=== PATIENT | female | born 1935 | race Caucasian/White ===

== ENCOUNTER 2016-08-21 01:05 | Emergency (ER) | payer OTHER ==
[~2016-08-21] VITALS: Ht 167.6 cm; Wt 82.6 kg
--- NOTE | 2016-08-21 01:12 | ED GI/GU/ABDOMINAL COMPLAINT ---
History of Present Illness General Chief Complaint: Nausea, Vomiting, Diarrhea Stated Complaint: BIBA FROM [facility],+N +D Source: patient, family Exam Limitations: no limitations Vital Signs & Intake/Output Vital Signs & Intake/Output Vital Signs Date Time Temp Pulse Resp B/P B/P Pulse O2 O2 Flow FiO2 Mean Ox Delivery Rate 08/21 0449 97.6 65 18 128/76 96 08/21 0200 61 18 130/76 97 08/21 0108 97.6 63 19 120/58 98 Room Air Allergies Coded Allergies: MDX - Latex (UNKNOWN 08/07/13) MDX - Rofecoxib (Rofecoxib) (UNKNOWN 08/07/13) Triage Nurses Notes Reviewed? yes ? N Is pt currently ? No Onset: Abrupt Duration: hour(s): (1) Timing: single episode today Quality/Severity: mild, moderate Location: generalized abdomen Activities at Onset: large BM Associated Symptoms: abdominal pain, nausea/vomiting HPI: 81 year old female presents via EMS from [facility] for chief complaint of syncopal episode after a large BM in the intermediate [facility]. SHe then vomited. Patient was found diaphoretic, hypotensive. She was given 250 mL bolus of fluid. No chest pain or shortness of breath. At this time patient arrives normotensive. Skin is warm and dry. She is awake alert and mentating. Denies any abdominal pain at this time. She states she had some lower abdominal cramping which got better after the bowel movement. Past History Medical History Any Pertinent Medical History? see below for history Musculoskeletal: spinal stenosis, CHRONIC PAIN Psychiatric: anxiety History of MRSA: No History of VRE: No History of CDIFF: No Pneumonia Vaccine: 02/22/10 Influenza Vaccine: 01/22/13 Surgical History Surgical History: non-contributory Psychosocial History Who do you live with Paid Attentent What is your primary language [place] Family History Family History, If Any: MOTHER FH: uterine cancer FATHER FH: alcoholism Hx Contributory? No Review of Systems Review of Systems Constitutional: Denies: chills, fever. EENTM: Reports: no symptoms. Respiratory: Denies: cough, short of breath. Cardiovascular: Denies: chest pain, palpitations. GI: Reports: abdominal pain, constipation, nausea, vomiting. Genitourinary: Reports: no symptoms. Musculoskeletal: Reports: no symptoms. Skin: Reports: no symptoms. Neurological/Psychological: Reports: no symptoms. Hematologic/Endocrine: Denies: bruising, bleeding, polyuria, polydipsia. Immunologic/Allergic: Denies: HIV/AIDS. All Other Systems: Reviewed and Negative Physical Exam Physical Exam General Appearance: well developed/nourished, alert, awake, mild distress, moderate distress Head: atraumatic, normal appearance Eyes: Bilateral: normal appearance, PERRL, EOMI. Ears, Nose, Throat, Mouth: hearing grossly normal Neck: normal inspection, supple, full range of motion Respiratory: normal breath sounds, chest non-tender, no respiratory distress Cardiovascular: regular rate/rhythm Peripheral Pulses: 2+ radial (R), 2+ radial (L) Gastrointestinal: FIRM, HYPOACTIVE BOWEL SOUNDS Extremities: normal range of motion Neurologic/Psych: no motor/sensory deficits, awake, alert, oriented x 3 Skin: intact, normal color, warm/dry Core Measures ACS in differential dx? No Severe Sepsis Present: No Septic Shock Present: No Progress Differential Diagnosis: perforated viscous, SBO, COLITIS, CONSTIPATION, DIVERTICULITIS, MESENTERIC ISCHEMIA, VASOVAGAL SYNCOPE Plan of Care: Orders Procedure Date/time Status LACTIC ACID 08/21 041 Complete URINALYSIS 08/21 032 Complete TROPONIN LEVEL 08/21 116 Complete LIPASE 08/21 116 Complete LACTIC ACID 08/21 116 Complete COMPREHENSIVE METABOLIC PANEL 08/21 116 Complete CBC WITHOUT DIFFERENTIAL 08/21 116 Complete EKG 08/21 116 Active Laboratory Tests 08/21/16 0513: Urine Color STRAW, Urine Clarity CLEAR, Urine pH 7.0, Ur Specific [place] <= 1.005, Urine Protein NEG, Urine Ketones NEG, Urine Nitrite NEG, Urine Bilirubin NEG, Urine Urobilinogen 0.2, Ur Leukocyte Esterase NEG, Ur Microscopic EXAM NOT REQUIRED, Urine Hemoglobin NEG, Urine Glucose NEG 08/21/16 0430: Lactic Acid 1.7 08/21/16 0208: Anion Gap 12, Estimated GFR > 60, BUN/Creatinine Ratio 51.4 H, Glucose 104 H, Lactic Acid 2.0, Calcium 8.4, Total Bilirubin 0.4, AST 40 H, ALT 47, Alkaline Phosphatase 64, Troponin I 0.01, Total Protein 6.6, Albumin 3.6, Globulin 3.0, Albumin/Globulin Ratio 1.2, Lipase 45, CBC w Diff MAN DIFF ORDERED, RBC 3.89 L, MCV 82.7, MCH 27.7, RDW 14.5, MPV 8.3, Gran % 87.1 H, Lymphocytes % 10.4 L, Monocytes % 1.0 L, Eosinophils % 1.3, Basophils % 0.2, Absolute Granulocytes 12.3 H, Segmented Neutrophils 75, Band Neutrophils 5, Absolute Lymphocytes 1.5, Lymphocytes 15 L, Monocytes 3, Absolute Monocytes 0.1 L, Eosinophils 2, Absolute Eosinophils 0.2, Absolute Basophils 0, Platelet Estimate ADEQUATE, Normocytic RBCs VERIFIED, Normochromic RBCs VERIFIED, PUBS MCHC 33.5 PATIENT IMPROVED UPON ARRIVAL. NO FURTHER VOMITING/DIARRHEA. LABS SENT. FLUIDS ORDERED. ELEVATED LACTIC/WBC. CT SCAN ORDERED. PATIENT/FAMILY UPDATED. CT SHOWS SINGLE DILATED LOOP. NO FURTHER VOMTING IN THE ED. NO RUQ PAIN ( DILATED DUCTS ON CT). WILL TRANSPORT BACK TO [facility]. NO SYMPTOMS ON DISCHARGE. (LOREN VASQUEZ,VASHTI) Diagnostic Imaging: Viewed by Me: CT Scan. Discussed w/RAD: CT Scan. Radiology Impression: PATIENT: MARLENA IRVING PRESENT AGE: 81 PATIENT ACCOUNT NO: [id number] : 36 LOCATION: [facility] ORDERING PHYSICIAN: VASHTI PIMENTEL MD SERVICE DATE: 08/21/16 EXAM TYPE: CAT - CT ABD & PELVIS W IV CONTRAST EXAMINATION: CT ABDOMEN AND PELVIS WITH CONTRAST CLINICAL INFORMATION: Abdominal pain, diarrhea COMPARISON: 11/19/2007 TECHNIQUE: Multidetector volumetric imaging was performed of the abdomen and pelvis before and after the IV administration of 95 mL of Optiray intravenous contrast. Sagittal and coronal reformatted images were obtained on the technologist's workstation. DLP: 751.13 mGy-cm FINDINGS: LUNG BASES: There is mild dependent atelectasis at the lung bases. Bilateral breast implants are partially visualized. LIVER, GALLBLADDER, AND BILIARY TREE: The liver is normal in size, shape, and attenuation. No focal hepatic lesion is identified. There is intrahepatic and extrahepatic biliary ductal dilatation which appears increased from prior. The gallbladder appears unremarkable. PANCREAS: Unremarkable. SPLEEN : Unremarkable. ADRENAL GLANDS: Unremarkable. KIDNEYS AND URETERS: The kidneys are normal in size, shape, and attenuation. There is a redemonstrated left lower pole renal cyst. No hydronephrosis, hydroureter, or calculi seen. No perinephric stranding. BLADDER: Unremarkable. GASTROINTESTINAL TRACT: There is a segment of borderline dilated fluid-filled small bowel in the left abdomen, of uncertain clinical significance. No abnormal bowel wall thickening is seen. There is moderate stool and fluid throughout the colon. ABDOMINAL WALL: No significant hernia is appreciated. Fatty atrophy is noted of the paraspinal musculature and visualized quadriceps muscles. LYMPH NODES: Normal. VASCULAR: There is atherosclerotic calcification along the aorta. PELVIC VISCERA: Unremarkable. There is a small volume of pelvic free fluid. OSSEOUS STRUCTURES: Degenerative changes are noted in the spine. IMPRESSION: 1. Segment of borderline dilated fluid-filled small bowel in the left abdomen, of uncertain clinical significance. Developing obstruction would be difficult to entirely exclude, though mild ileus is also possibility. 2. Moderate stool and fluid throughout the colon. No abnormal wall thickening identified. 3. Small volume of pelvic free fluid. 4. Intra and extrahepatic biliary ductal dilatation which appears increased from 11/19/2007. If clinically warranted, further assessment may be performed with MRCP. DICTATED BY: MIGUELINA ALVARES MD DATE/TIME DICTATED:08/21/16412 [employer] SAL[employer] CONSULTANT:THEO DATE/TIME TRANSCRIBED:08/21/16412 CONFIDENTIAL, DO NOT COPY WITHOUT APPROPRIATE AUTHORIZATION. <Electronically signed in Other Vendor System> SIGNED BY: MIGUELINA ALVARES MD 08/21/16 0430 Initial ED EKG: NSR, 1ST DEGREE AV BLOCK T WAVE INVERSION, 1, AVL Prior EKG: unchanged Departure Departure Time of Disposition: 439 Disposition: ACUTE REHAB FACILITY Condition: Stable Clinical Impression Primary Impression: Vasovagal syncope Secondary Impressions: Constipation, Dehydration, Ileus Referrals: CHAGO VASQUEZ,SOREN Stovall (PCP/Family) Departure Forms: Customer Survey General Discharge Information
[2016-08-21 02:16] LABS: ABSOLUTE BASOPHIL COUNT 0 /CUMM (0.0-0.2); ABSOLUTE EOSINOPHIL COUNT 0.2 /CUMM (0.0-0.7); ABSOLUTE GRANULOCYTE CT 12.3 /CUMM (1.4-6.5); ABSOLUTE LYMPH COUNT 1.5 /CUMM (1.2-3.4); ABSOLUTE MONOCYTE COUNT 0.1 /CUMM (0.10-0.60); BASOPHIL % 0.2 % (0.0-2.0); EOSINOPHIL % 1.3 % (0-5); HEMATOCRIT 32.1 % (37-47); MEAN CORPUSCULAR HGB 27.7 PG (27.0-31.0); MEAN CORPUSCULAR HGB CONC 33.5 G/DL (33.0-37.0); MEAN CORPUSCULAR VOLUME 82.7 FL (81.0-99.0); MEAN PLATELET VOLUME 8.3 FL (7.4-10.4); PLATELET COUNT 252 /CUMM (130-400); RBC DISTRIBUTION WIDTH 14.5 % (11.5-14.5); RED BLOOD CELL CT 3.89 /CUMM (4.20-5.40); WHITE BLOOD CELL COUNT 14.1 /CUMM (4.8-10.8)
[2016-08-21 02:45] LABS: GRANULOCYTE % 87.1 % (42.2-75.2)
--- NOTE | 2016-08-21 04:30 | CT SCAN REPORT ---
EXAMINATION: CT ABDOMEN AND PELVIS WITH CONTRAST CLINICAL INFORMATION: Abdominal pain, diarrhea COMPARISON: 11/19/2007 TECHNIQUE: Multidetector volumetric imaging was performed of the abdomen and pelvis before and after the IV administration of 95 mL of Optiray intravenous contrast. Sagittal and coronal reformatted images were obtained on the technologist's workstation. DLP: 751.13 mGy-cm FINDINGS: LUNG BASES: There is mild dependent atelectasis at the lung bases. Bilateral breast implants are partially visualized. LIVER, GALLBLADDER, AND BILIARY TREE: The liver is normal in size, shape, and attenuation. No focal hepatic lesion is identified. There is intrahepatic and extrahepatic biliary ductal dilatation which appears increased from prior. The gallbladder appears unremarkable. PANCREAS: Unremarkable. SPLEEN: Unremarkable. ADRENAL GLANDS: Unremarkable. KIDNEYS AND URETERS: The kidneys are normal in size, shape, and attenuation. There is a redemonstrated left lower pole renal cyst. No hydronephrosis, hydroureter, or calculi seen. No perinephric stranding. BLADDER: Unremarkable. GASTROINTESTINAL TRACT: There is a segment of borderline dilated fluid-filled small bowel in the left abdomen, of uncertain clinical significance. No abnormal bowel wall thickening is seen. There is moderate stool and fluid throughout the colon. ABDOMINAL WALL: No significant hernia is appreciated. Fatty atrophy is noted of the paraspinal musculature and visualized quadriceps muscles. LYMPH NODES: Normal. VASCULAR: There is atherosclerotic calcification along the aorta. PELVIC VISCERA: Unremarkable. There is a small volume of pelvic free fluid. OSSEOUS STRUCTURES: Degenerative changes are noted in the spine. IMPRESSION: 1. Segment of borderline dilated fluid-filled small bowel in the left abdomen, of uncertain clinical significance. Developing obstruction would be difficult to entirely exclude, though mild ileus is also possibility. 2. Moderate stool and fluid throughout the colon. No abnormal wall thickening identified. 3. Small volume of pelvic free fluid. 4. Intra and extrahepatic biliary ductal dilatation which appears increased from 11/19/2007. If clinically warranted, further assessment may be performed with MRCP.
[2016-08-21 05:51] VITALS: BP 130/86
== END 2016-08-21 05:52 ==
LOC: ERH 01:05
PROVIDERS: Emergency Medicine
DX: R55 Syncope and collapse (principal); K59.00 Constipation, unspecified; E86.0 Dehydration; K56.7 Ileus, unspecified; R11.10 Vomiting, unspecified
CPT/HCPCS: 74177; 81003; 93005; 93010; J7040

== ENCOUNTER 2018-01-08 03:19 | Emergency (ER) | payer OTHER ==
[~2018-01-08] VITALS: Ht 167.6 cm; Wt 79.4 kg
[~2018-01-08 03:19] MED LIST: ASPIRIN EC81 M1 PO; CARDIZEM CD300 M1 PO; DILAUDID4 M1 PO; GABAPENTIN400 M2 PO; GABAPENTIN600 M1 PO; HYDROCHLOROTHIA25 M1 PO; LEVOTHYROXINE100 MC1 PO; LEXAPRO10 M1 PO; LISINOPRIL40 M1 PO; LOPERAMIDE2 M2 PO; MIRALAX119 GM PO; MOXIFLOXACIN H400 M2 PO; SENOKOT-S TABL1 EACH PO; TOPROL XL25 M2 PO; TYLENOL EXTRA500 M2 PO; WELLBUTRIN XL300 M2 PO; XANAX0.25 M1 PO
--- NOTE | 2018-01-08 03:22 | ED MVC/FALL/TRAUMA COMPLAINT ---
History of Present Illness General Chief Complaint: Fall Stated Complaint: FALL Source: patient, EMS, [facility] Exam Limitations: dementia Vital Signs & Intake/Output Vital Signs & Intake/Output Vital Signs Date Time Temp Pulse Resp B/P B/P Pulse O2 O2 Flow FiO2 Mean Ox Delivery Rate 01/08 0400 97 Room Air 01/08 0324 97.1 57 16 113/56 Allergies Coded Allergies: latex (UNKNOWN 12/10/16) rofecoxib (UNKNOWN 12/10/16) Reconcile Medications Acetaminophen (Tylenol Extra Strength) 500 MG TABLET 1 TAB PO TID PAIN ( Reported) Alprazolam (Xanax) 0.25 MG TABLET 1 TAB PO BIDP PRN ANXIETY (Reported) Please hold for sedation Aspirin (Ecotrin*) 81 MG TABLET.DR 1 TAB PO QHS HEART HEALTH (Reported) Bupropion HCl (Wellbutrin XL) 300 MG TAB.ER.24H 1 TAB PO QAM MENTAL HEALTH ( Reported) Diltiazem HCl (Cardizem Cd) 300 MG CAP.ER.24H 1 CAP PO DAILY HEART HEALTH ( Reported) Escitalopram Oxalate (Lexapro) 10 MG TABLET 1 TAB PO DAILY MENTAL HEALTH ( Reported) Gabapentin 400 MG CAPSULE 1 CAP PO 2PM PAIN (Reported) Gabapentin 600 MG TABLET 1 TAB PO BID PAIN (Reported) Hydrochlorothiazide 25 MG TABLET 1 TAB PO DAILY DIURETIC (Reported) Hydromorphone HCl (Dilaudid) 4 MG TABLET 1 TAB PO TIDPRN PAIN (Reported) Levothyroxine Sodium 100 MCG TABLET 1 TAB PO DAILY THYROID (Reported) Lisinopril 40 MG TABLET 1 TAB PO DAILY DAILY (Reported) Loperamide HCl (Loperamide) 2 MG CAPSULE 2 MG PO Q8P PRN DIARRHEA Metoprolol Succ XL (Toprol XL) 25 MG TAB.ER.24H 1 TAB PO DAILY HYPERTENSION ( Reported) Moxifloxacin HCl 400 MG TABLET 400 MG PO DAILY pneumonia Polyethylene Glycol 3350 (Miralax) 17 GRAM/DOSE POWDER 17 GM PO DAILY CONSTIPATION (Reported) mix with water, juice, soda, coffee or tea Sennosides/Docusate Sodium (Senokot-S Tablet) 8.6 MG-50 MG TABLET 2 TAB PO QHS CONSTIPATION (Reported) Triage Nurses Notes Reviewed? yes HPI: 82 YO woman from [facility], presents after a fall. She shares that she usually resides in a wheelchair. This morning, she shares that she was placing pants over a chair. She lost her balance and fell. She denies injury, but notes chronic back pain that is at baseline. Past History Travel History Traveled to [place] past 21 day No Medical History Any Pertinent Medical History? see below for history Neurological: NONE EENT: NONE Cardiovascular: NONE Respiratory: pneumonia Gastrointestinal: NONE Hepatic: NONE Renal: NONE Musculoskeletal: spinal stenosis, CHRONIC PAIN Psychiatric: anxiety Endocrine: hypothyroidism History of MRSA: No History of VRE: No History of CDIFF: No Surgical History Surgical History: non-contributory Psychosocial History Who do you live with Paid Attentent What is your primary language Ukrainian Family History Family History, If Any: MOTHER FH: uterine cancer FATHER FH: alcoholism Hx Contributory? No Review of Systems Review of Systems Constitutional: Reports: no symptoms. Eyes: Reports: no symptoms. Ears, Nose, Throat, Mouth: Reports: no symptoms. Respiratory: Reports: no symptoms. Cardiovascular: Reports: no symptoms. Gastrointestinal/Abdominal: Reports: no symptoms. Genitourinary: Reports: no symptoms. Musculoskeletal: Reports: no symptoms. Skin: Reports: no symptoms. Neurological/Psychological: Reports: no symptoms. All Other Systems: Reviewed and Negative Physical Exam Physical Exam General Appearance: well developed/nourished, no apparent distress Head: atraumatic, normal appearance Eyes: Bilateral: normal appearance, PERRL, EOMI. Ears, Nose, Throat, Mouth: hearing grossly normal, moist mucous membrane Neck: normal inspection, supple, full range of motion Respiratory: normal breath sounds, chest non-tender, no respiratory distress, quiet respiration, lungs clear Cardiovascular: regular rate/rhythm Gastrointestinal: normal bowel sounds, soft, non-tender, no organomegaly Back: normal inspection, normal range of motion, muscle spasm, no vertebral tenderness Extremities: normal range of motion Neurologic/Psych: no motor/sensory deficits, awake, alert, oriented x 3 Skin: intact, normal color, warm/dry Core Measures ACS in differential dx? No CVA/TIA Diagnosis No Sepsis Present: No Sepsis Focused Exam Completed? No Progress Differential Diagnosis: C/T/L spine injury, ext injury, ICH, pelvis injury Plan of Care: Orders Procedure Date/time Status XRY-AP PELVIS 01/08 322 Active XRY-LUMBOSACRAL SPINE AP & LAT 01/[address] HEAD WO IV CONTRAST 01/[address] CERV SPINE WO IV CONTRAST 01/08 322 Active Diagnostic Imaging: Viewed by Me: Radiology Read, CT Scan. Discussed w/RAD: Radiology Read, CT Scan. Radiology Impression: PATIENT: MARLENA IRVING PRESENT AGE: 82 PATIENT ACCOUNT NO: [id number] : 36 LOCATION: ER ORDERING PHYSICIAN: Mustapha Keane MD SERVICE DATE: 01/08/18 EXAM TYPE: RAD - XRY-AP PELVIS; XRY-LUMBOSACRAL SPINE AP & LAT EXAMINATION: XR LUMBOSACRAL SPINE XR PELVIS CLINICAL INFORMATION: Fall, dementia, chronic pain COMPARISON: 08/21/2016 TECHNIQUE: 3 views of the lumbosacral spine. AP view of the pelvis. FINDINGS: Lumbosacral spine: Assessment in the lateral projection is suboptimal due to patient positioning. Alignment of the vertebral bodies and posterior elements appears anatomic. Vertebral body heights are maintained. No acute fracture is seen. Mild multilevel endplate osteophytes are present. Facet arthropathy is better demonstrated on prior CT. There is atherosclerotic calcification along the aorta. Pelvis: Suboptimal assessment due to patient positioning. Alignment across the hips appears anatomic with mild degenerative change. No acute fracture is seen. The sacroiliac joints appear intact. IMPRESSION: No acute findings identified in the lumbosacral spine or pelvis. Chronic appearing changes as described above. DICTATED BY: Jossue Haywood MD DATE/TIME DICTATED:01/08/18434 ASSISTANT HALL DIRECTOR:THEO DATE/TIME TRANSCRIBED:01/08/18434 CONFIDENTIAL, DO NOT COPY WITHOUT APPROPRIATE AUTHORIZATION. <Electronically signed in Other Vendor System> SIGNED BY: Jossue Haywood MD 01/08/18441, PATIENT: MARLENA IRVING PRESENT AGE: 82 PATIENT ACCOUNT NO: [id number] : 36 LOCATION: [facility] ORDERING PHYSICIAN: Mustapha Keane MD SERVICE DATE: 01/08/18 EXAM TYPE: CAT - CT CERV SPINE WO IV CONTRAST; CT HEAD WO IV CONTRAST EXAMINATION: NONCONTRAST HEAD CT NONCONTRAST CERVICAL SPINE CT INDICATION INFORMATION: Fall, trauma COMPARISON: 05/14/2012 TECHNIQUE: Separate noncontrast CT examinations of the head and cervical spine were performed. Coronal head CT images and coronal and sagittal cervical spine images were created at the technologist workstation. DLP: 1069.61 mGy-cm FINDINGS: Head: There is no evidence of acute intracranial hemorrhage or territorial infarction. No abnormal mass-effect or midline shift is seen. Caruso to white matter differentiation is well preserved. No extra-axial fluid collections are identified. The ventricles are normal in size. There is mild periventricular white matter hypoattenuation consistent with chronic small vessel ischemic disease. There is mild periventricular white matter hypoattenuation consistent with chronic small vessel ischemic disease. 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 The osseous structures and soft tissues are normal. There is opacification of the right frontal and maxillary sinuses, suggestive of a chronic appearance. The mastoid air cells are well-aerated. Cervical spine: There is anatomic alignment of the vertebral bodies and posterior elements. There is degenerative change at the atlantodens articulation. Vertebral body heights are maintained. There is mild disc space narrowing in the lower cervical spine. Multilevel degenerative changes are present including endplate osteophytes and facet arthropathy. No evidence of acute fracture. No prevertebral soft tissue swelling. Visualized portions of the lung apices are unremarkable. The thyroid gland is unremarkable. IMPRESSION: 1. Head: No acute intracranial findings. Chronic appearing changes as described above. 2. Cervical spine: No acute findings identified. Chronic/degenerative changes as described above. DICTATED BY: oJssue Haywood MD DATE/TIME DICTATED:01/08/18438 ASSISTANT HALL DIRECTOR:THEO DATE/TIME TRANSCRIBED:01/08/18438 CONFIDENTIAL, DO NOT COPY WITHOUT APPROPRIATE AUTHORIZATION. <Electronically signed in Other Vendor System> SIGNED BY: Jossue Haywood MD 01/08/18 0451 Departure Departure Disposition: HOME OR SELF CARE Condition: Stable Clinical Impression Primary Impression: Fall Referrals: Scotty VASQUEZ,Alec Stovall (PCP/Family) Departure Forms: Customer Survey General Discharge Information Comments 01/08/18, 5:05am... pt reports no new discomfort/pain. she is resting comfortably in the gurney. Negative studies... pt safe for return back to [facility].
--- NOTE | 2018-01-08 04:42 | RADIOLOGY REPORT ---
EXAMINATION: XR LUMBOSACRAL SPINE XR PELVIS CLINICAL INFORMATION: Fall, dementia, chronic pain COMPARISON: 08/21/2016 TECHNIQUE: 3 views of the lumbosacral spine. AP view of the pelvis. FINDINGS: Lumbosacral spine: Assessment in the lateral projection is suboptimal due to patient positioning. Alignment of the vertebral bodies and posterior elements appears anatomic. Vertebral body heights are maintained. No acute fracture is seen. Mild multilevel endplate osteophytes are present. Facet arthropathy is better demonstrated on prior CT. There is atherosclerotic calcification along the aorta. Pelvis: Suboptimal assessment due to patient positioning. Alignment across the hips appears anatomic with mild degenerative change. No acute fracture is seen. The sacroiliac joints appear intact. IMPRESSION: No acute findings identified in the lumbosacral spine or pelvis. Chronic appearing changes as described above.
--- NOTE | 2018-01-08 04:51 | CT SCAN REPORT ---
EXAMINATION: NONCONTRAST HEAD CT NONCONTRAST CERVICAL SPINE CT INDICATION INFORMATION: Fall, trauma COMPARISON: 05/14/2012 TECHNIQUE: Separate noncontrast CT examinations of the head and cervical spine were performed. Coronal head CT images and coronal and sagittal cervical spine images were created at the technologist workstation. DLP: 1069.61 mGy-cm FINDINGS: Head: There is no evidence of acute intracranial hemorrhage or territorial infarction. No abnormal mass-effect or midline shift is seen. Caruso to white matter differentiation is well preserved. No extra-axial fluid collections are identified. The ventricles are normal in size. There is mild periventricular white matter hypoattenuation consistent with chronic small vessel ischemic disease. There is mild periventricular white matter hypoattenuation consistent with chronic small vessel ischemic disease. 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 The osseous structures and soft tissues are normal. There is opacification of the right frontal and maxillary sinuses, suggestive of a chronic appearance. The mastoid air cells are well-aerated. Cervical spine: There is anatomic alignment of the vertebral bodies and posterior elements. There is degenerative change at the atlantodens articulation. Vertebral body heights are maintained. There is mild disc space narrowing in the lower cervical spine. Multilevel degenerative changes are present including endplate osteophytes and facet arthropathy. No evidence of acute fracture. No prevertebral soft tissue swelling. Visualized portions of the lung apices are unremarkable. The thyroid gland is unremarkable. IMPRESSION: 1. Head: No acute intracranial findings. Chronic appearing changes as described above. 2. Cervical spine: No acute findings identified. Chronic/degenerative changes as described above.
[2018-01-08 05:32] VITALS: BP 115/63
== END 2018-01-08 05:56 ==
LOC: ERH 03:19
DX: Z04.3 Encounter for examination and observation following other accident (principal); I10 Essential (primary) hypertension; F41.9 Anxiety disorder, unspecified; E03.9 Hypothyroidism, unspecified; Z79.82 Long term (current) use of aspirin
CPT/HCPCS: 72100; 72170